=== PATIENT | female | born 1965 | race Hispanic/Latino ===

== ENCOUNTER → 2018-03-30 | Outpatient (CLI) | payer SELFPAY ==
[2018-03-30 16:54] LABS: EOSINOPHILS % (AUTO) 3.3 % (0.0-8.0); HEMATOCRIT 38.8 % (36-48); LYMPHOCYTES % (AUTO) 26.2 % (21.0-51.0); MEAN CORPUSCULAR HEMOGLOBIN 28.8 pg (27.0-33.0); MEAN CORPUSCULAR HGB CONC 33.5 g/dL (32.0-36.0); NEUTROPHILS % (AUTO) 60.5 % (40.0-77.0); PLATELET COUNT (AUTO) 347 K/uL (130-400); RED BLOOD CELL COUNT(AUTO) 4.51 MIL/uL (4.00-5.50); RED CELL DISTRIBUTION WIDTH 13.3 % (11.0-15.5); WHITE BLOOD COUNT (AUTO) 13.4 K/uL (4.8-10.8)
== END | disposition home or self-care (01) ==
LOC: LAB 15:50
PROVIDERS: ATTEND Specialist
DX: Z01.812 Encounter for preprocedural laboratory examination (principal); E11.36 Type 2 diabetes mellitus with diabetic cataract; R79.89 Other specified abnormal findings of blood chemistry
CPT/HCPCS: 36415; 85025

== ENCOUNTER 2018-08-24 19:00 | Emergency (ER) | payer OTHER, SELFPAY ==
[2018-08-24] MEDS ORDERED: NITROGLYCERIN 1GM/1 INCH PACKET TD ONE (19:35)
[2018-08-24 19:41] LABS: BASOPHILS % (AUTO) 1.5 % (0.0-5.0); EOSINOPHILS % (AUTO) 3.2 % (0.0-8.0); HEMATOCRIT 36.4 % (36-48); LYMPHOCYTES % (AUTO) 24.5 % (21.0-51.0); MEAN CORPUSCULAR HEMOGLOBIN 27.2 pg (27.0-33.0); MEAN CORPUSCULAR HGB CONC 33.1 g/dL (32.0-36.0); MEAN CORPUSCULAR VOLUME 82.3 fL (79-99); NEUTROPHILS % (AUTO) 62.8 % (40.0-77.0); NUCLEATED RED BLOOD CELLS 0.1 % (0.0-0.19); PLATELET COUNT (AUTO) 244 K/uL (130-400); RED BLOOD CELL COUNT(AUTO) 4.42 MIL/uL (4.00-5.50); RED CELL DISTRIBUTION WIDTH 13.9 % (11.0-15.5); WHITE BLOOD COUNT (AUTO) 13.7 K/uL (4.8-10.8)
[2018-08-24 19:47] LABS: POTASSIUM 5.2 mmol/L (3.5-5.1)
[2018-08-24 19:52] LABS: ALBUMIN 2.2 g/dL (3.5-5.0); BILIRUBIN,TOTAL 0.1 mg/dL (0.2-1.0); TOTAL PROTEIN, SERUM 6.4 g/dL (6.0-8.3)
[2018-08-24 20:08] LABS: B-TYPE NATRIURETIC PEPTIDE 1840 pg/mL (0-100)
[2018-08-24] MEDS ORDERED: FUROSEMIDE 10 MG/ML 4ML VIAL ONE (20:13)
[2018-08-24 21:02] LABS: APPEARANCE,URINE Clear (CLEAR); BILIRUBIN,URINE Negative (NEGATIVE); COLOR,URINE Yellow (YELLOW); GLUCOSE, URINE (UA) 500 mg/dL (NEGATIVE); KETONES,URINE Negative (NEGATIVE); LEUKOCYTE ESTERASE ,URINE Small (NEGATIVE); NITRATE,URINE Positive (NEGATIVE); OCCULT BLOOD,URINE Small (NEGATIVE); PROTEIN,URINE >=1000 (NEGATIVE); UROBILINOGEN,URINE 0.2 mg/dL (0.2-1.0)
[2018-08-24 21:16] LABS: WBC,URINE 26-50 /HPF (0-1)
[2018-08-24 21:17] LABS: BACTERIA,URINE Moderate /HPF (None Seen)
[2018-08-24 21:18] LABS: SQUAMOUS EPITHELIAL CELL,UR Rare /HPF (0-2); TRANSITIONAL EPI CELLS,URINE Few /HPF (None Seen)
== END 2018-08-24 22:35 | disposition home or self-care (01) ==
LOC: EDH 19:00
DX: N28.9 Disorder of kidney and ureter, unspecified (principal); E11.9 Type 2 diabetes mellitus without complications; I10 Essential (primary) hypertension; Z91.14 Patient's other noncompliance with medication regimen
CPT/HCPCS: 36415; 71045; 80053; 81001; 82550; 83880; 84132; 84484 ×2; 85025; 93005 ×2; 96374; 99285; J1940

== ENCOUNTER 2019-10-29 05:57 | Day surgery (SDC) | payer BC, MEDICARE ==
[~2019-10-29] VITALS: Ht 152.4 cm; Wt 62.7 kg
[~2019-10-29 05:57] MED LIST: Isosorbide Mono 30MG Tab Sr PO; LABE300T2 PO; Nitroglycerin 0.4MG Sl Tab SL
[2019-10-29] MEDS ORDERED: SODIUM CHLORIDE 0.9% 1000ML 1,000 ML IV ONE (06:19)
[2019-10-29 07:44] VITALS: BP 164/64
[2019-10-29] MEDS ORDERED: GABA-529 PO (08:15)
[2019-10-29] MEDS ORDERED: BISA-72 PO (08:15)
[2019-10-29] MEDS ORDERED: SUCR500T PO (08:15)
[2019-10-29] MEDS ORDERED: calcium (08:15)
[2019-10-29] MEDS ORDERED: ASPI-1012 PO (08:15)
[2019-10-29] MEDS ORDERED: PROPOFOL 10 MG/ML 20ML VIAL IV ONE (08:24)
[2019-10-29] MEDS ORDERED: SIMETHICONE 40 MG/0.6 ML ML ONE (08:28)
[2019-10-29 08:35] VITALS: BP 103/46
[2019-10-29 08:40] VITALS: BP 110/49
[2019-10-29 08:45] VITALS: BP 103/69
[2019-10-29 08:50] VITALS: BP 114/62
[2019-10-29 08:55] VITALS: BP 118/60
== END 2019-10-29 09:05 | disposition home or self-care (01) ==
LOC: DAH 05:57
PROVIDERS: ATTEND Internal Medicine Gastroenterology
DX: K59.04 Chronic idiopathic constipation (principal); K57.30 Diverticulosis of large intestine without perforation or abscess without bleeding; K64.0 First degree hemorrhoids; I12.0 Hypertensive chronic kidney disease with stage 5 chronic kidney disease or end stage renal disease; E11.22 Type 2 diabetes mellitus with diabetic chronic kidney disease; N18.6 End stage renal disease; E78.00 Pure hypercholesterolemia, unspecified; Z79.899 Other long term (current) drug therapy; Z79.84 Long term (current) use of oral hypoglycemic drugs; Z90.710 Acquired absence of both cervix and uterus; Z98.890 Other specified postprocedural states; Z80.0 Family history of malignant neoplasm of digestive organs
CPT/HCPCS: 36415; 45378; 82948 ×2; 84132; A4215; A4221; A4222; A4223; A4606; A4620; A4663; J2704; J7030

== ENCOUNTER 2022-07-01 07:12 | Day surgery (SDC) | payer BC, OTHER ==
[2022-06-28 13:33] LABS: BASOPHILS % (AUTO) 0.7 % (0.0-5.0); EOSINOPHILS % (AUTO) 2.9 % (0.0-8.0); HEMATOCRIT 32.5 % (36-48); LYMPHOCYTES % (AUTO) 24.1 % (21.0-51.0); MEAN CORPUSCULAR HEMOGLOBIN 31.6 pg (27.0-33.0); MEAN CORPUSCULAR HGB CONC 32.6 g/dL (32.0-36.0); MONOCYTES % (AUTO) 10.1 % (3.0-13.0); NEUTROPHILS % (AUTO) 61.9 % (40.0-77.0); PLATELET COUNT (AUTO) 180 K/uL (130-400); RED BLOOD CELL COUNT(AUTO) 3.35 MIL/uL (4.00-5.50); RED CELL DISTRIBUTION WIDTH 13.7 % (11.0-15.5); WHITE BLOOD COUNT (AUTO) 7.5 K/uL (4.8-10.8)
[2022-06-28 13:46] LABS: INR 0.97 (0.85-1.15); PROTHROMBIN TIME 10.6 SEC (9.6-11.6)
[2022-06-28 13:47] LABS: PARTIAL THROMBOPLASTIN TIME 23.8 SEC (26.3-35.5)
[2022-06-28 13:52] LABS: ALBUMIN 3.4 g/dL (3.5-5.0); POTASSIUM 4.4 mmol/L (3.5-5.1); TOTAL PROTEIN, SERUM 6.3 g/dL (6.0-8.3)
[2022-06-30 09:24] VITALS: BP 122/53
[~2022-07-01] VITALS: Ht 152.4 cm; Wt 64.8 kg
[2022-07-01] VITALS (16 sets, daily range): BP systolic 110–172; BP diastolic 57–74
[~2022-07-01 07:12] MED LIST changes: +BISA-72 PO; +CEFAZOLIN SODIUM 1 GM VIAL IVP SCH; +GABA-529 PO; -LABE300T2 PO; +LABE300T4 PO; +LACTATED RINGERS 1000ML 1,000 ML IV SCH; -Nitroglycerin 0.4MG Sl Tab SL; +SUCR500T PO; +calcium
[2022-07-01] MEDS ORDERED: 0.9% NACL 500ML IV.SOLN 500 ML IV ONE (07:37)
[2022-07-01] MEDS ORDERED: BUPIVACAINE/PF 0.5% 10ML VIAL ONE (09:32)
[2022-07-01] MEDS ORDERED: ISOS30TA92 PO (09:35)
[2022-07-01] MEDS ORDERED: GABA-529 PO (09:35)
[2022-07-01] MEDS ORDERED: ATOR40TA71 PO (09:35)
[2022-07-01] MEDS ORDERED: ASPI-1005 PO (09:46)
[2022-07-01] MEDS ORDERED: FOLI1TAB85 PO (09:46)
[2022-07-01] MEDS ORDERED: OMEP20CA12 PO (09:46)
[2022-07-01] MEDS ORDERED: BISA-72 PO (09:46)
[2022-07-01] MEDS ORDERED: LABE300T4 PO (09:46)
[2022-07-01] MEDS ORDERED: SUCR500T PO (09:46)
[2022-07-01] MEDS ORDERED: PROPOFOL 10 MG/ML 20ML VIAL IV ONE (09:53)
[2022-07-01] MEDS ORDERED: FENTANYL CITRATE PF 50 MCG/1 ML 2ML VIAL ONE ×3 (09:53→12:06)
[2022-07-01] MEDS ORDERED: MIDAZOLAM HCL 1 MG/ML 2ML VIAL ONE (09:53)
[2022-07-01] MEDS ORDERED: ROCURONIUM 10MG/1ML SYR 10 MG/ML ML ONE (09:53)
[2022-07-01] MEDS ORDERED: PHENYLEPHRINE HCL 10 MG/ML 1ML VIAL IV ONE (10:15)
[2022-07-01] MEDS ORDERED: CEFAZOLIN SODIUM 2 GM VIAL IV ONE (10:15)
[2022-07-01] MEDS ORDERED: EPHEDRINE SULFATE 50 MG/ML AMPULE ONE (10:16)
[2022-07-01] MEDS ORDERED: NEOSTIGMINE 5MG/5ML SYR IV ONE (11:04)
[2022-07-01] MEDS ORDERED: GLYCOPYRROLATE 1 MG/5 ML SYRINGE ONE (11:04)
[2022-07-01] MEDS ORDERED: ONDANSETRON 4MG INJ ONE ×2 (11:39→12:06)
== END 2022-07-01 13:45 | disposition home or self-care (01) ==
LOC: DAH 07:12
PROVIDERS: ATTEND Student in an Organized Health Care Education/Training Program
DX: I13.2 Hypertensive heart and chronic kidney disease with heart failure and with stage 5 chronic kidney disease, or end stage renal disease (principal); E11.22 Type 2 diabetes mellitus with diabetic chronic kidney disease; I50.9 Heart failure, unspecified; N18.6 End stage renal disease; Z99.2 Dependence on renal dialysis; Z79.82 Long term (current) use of aspirin; Z79.899 Other long term (current) drug therapy; Z90.710 Acquired absence of both cervix and uterus; Z90.89 Acquired absence of other organs
CPT/HCPCS: 80053; 85025; 85610; 85730; 87426; 36415 ×2; 49324; 84132; 82948 ×2; A6260; A4663; J0690 ×2; J7040; J3010 ×3; J3490 ×3; J2710; J2250; J2704; J2405 ×2; C1769 ×3; A4930; C1752; A4215; A4223; A4222; A4221; A4600; J2370

== ENCOUNTER 2022-08-26 06:48 | Day surgery (SDC) | payer OTHER, BC ==
[2022-08-19 16:14] VITALS: BP 134/67
[2022-08-19 16:44] LABS: BASOPHILS % (AUTO) 0.7 % (0.0-5.0); HEMATOCRIT 32.7 % (36-48); LYMPHOCYTES % (AUTO) 24.3 % (21.0-51.0); MEAN CORPUSCULAR HGB CONC 32.7 g/dL (32.0-36.0); MEAN CORPUSCULAR VOLUME 97.9 fL (79-99); MONOCYTES % (AUTO) 10.8 % (3.0-13.0); NEUTROPHILS % (AUTO) 59.8 % (40.0-77.0); PLATELET COUNT (AUTO) 192 K/uL (130-400); RED BLOOD CELL COUNT(AUTO) 3.34 MIL/uL (4.00-5.50); RED CELL DISTRIBUTION WIDTH 12.7 % (11.0-15.5); WHITE BLOOD COUNT (AUTO) 10.1 K/uL (4.8-10.8)
[2022-08-19 16:58] LABS: ALBUMIN 3.5 g/dL (3.5-5.0); CREATININE 4.6 mg/dL (0.5-1.5); POTASSIUM 3.6 mmol/L (3.5-5.1); TOTAL PROTEIN, SERUM 6.8 g/dL (6.0-8.3)
[~2022-08-26] VITALS: Ht 152.4 cm; Wt 64.4 kg
[2022-08-26] VITALS (19 sets, daily range): BP systolic 110–158; BP diastolic 56–80
[~2022-08-26 06:48] MED LIST changes: +ATOR40TA71 PO; -BISA-72 PO; +BUPIVACAINE/PF 0.25% 30ML VIAL IJ ONE; +FOLI1TAB85 PO; +ISOS30TA92 PO; -Isosorbide Mono 30MG Tab Sr PO; -LACTATED RINGERS 1000ML 1,000 ML IV SCH; +OMEP20CA12 PO; -SUCR500T PO; -calcium; +vitamin e PO
[2022-08-26] MEDS ORDERED: CEFAZOLIN SODIUM 1 GM VIAL ONE (07:27)
[2022-08-26] MEDS ORDERED: 0.9% NACL 500ML IV.SOLN 500 ML IV ONE (07:27)
[2022-08-26 08:23] LABS: CREATININE 5.5 mg/dL (0.5-1.5); POTASSIUM 4.1 mmol/L (3.5-5.1)
[2022-08-26] MEDS ORDERED: PROPOFOL 10 MG/ML 20ML VIAL IV ONE (08:46)
[2022-08-26] MEDS ORDERED: ONDANSETRON 4MG INJ ONE (08:46)
[2022-08-26] MEDS ORDERED: ROCURONIUM 10MG/1ML SYR 10 MG/ML ML ONE (08:46)
[2022-08-26] MEDS ORDERED: MIDAZOLAM HCL 1 MG/ML 2ML VIAL ONE (08:46)
[2022-08-26] MEDS ORDERED: FENTANYL CITRATE PF 50 MCG/1 ML 2ML VIAL ONE (08:47)
[2022-08-26] MEDS ORDERED: CEFAZOLIN SODIUM 2 GM VIAL IVPB ONE (08:57)
[2022-08-26] MEDS ORDERED: PHENYLEPHRINE HCL 10 MG/ML 1ML VIAL IV ONE (09:15)
[2022-08-26] MEDS ORDERED: MEPERIDINE-PF 25 MG/ML SYG ONE (10:07)
[2022-08-26] MEDS ORDERED: NEOSTIGMINE 5MG/5ML SYR IV ONE (10:08)
[2022-08-26] MEDS ORDERED: GLYCOPYRROLATE 1 MG/5 ML SYRINGE ONE (10:08)
== END 2022-08-26 12:40 | disposition home or self-care (01) ==
LOC: DAH 06:48
PROVIDERS: ATTEND Student in an Organized Health Care Education/Training Program
DX: T82.49XA Other complication of vascular dialysis catheter, initial encounter (principal); Z20.822 Contact with and (suspected) exposure to COVID-19; K66.0 Peritoneal adhesions (postprocedural) (postinfection); E11.22 Type 2 diabetes mellitus with diabetic chronic kidney disease; I13.2 Hypertensive heart and chronic kidney disease with heart failure and with stage 5 chronic kidney disease, or end stage renal disease; I50.9 Heart failure, unspecified; N18.6 End stage renal disease; Z79.01 Long term (current) use of anticoagulants; D64.9 Anemia, unspecified; G47.30 Sleep apnea, unspecified; Z98.890 Other specified postprocedural states; Z79.899 Other long term (current) drug therapy; Z79.82 Long term (current) use of aspirin; Z90.49 Acquired absence of other specified parts of digestive tract; Z98.891 History of uterine scar from previous surgery; Z90.710 Acquired absence of both cervix and uterus; Z90.89 Acquired absence of other organs; Z82.49 Family history of ischemic heart disease and other diseases of the circulatory system; Z99.2 Dependence on renal dialysis; Z83.3 Family history of diabetes mellitus; Y83.8 Other surgical procedures as the cause of abnormal reaction of the patient, or of later complication, without mention of misadventure at the time of the procedure
CPT/HCPCS: 87426; 80053; 85025; 36415 ×2; 49324; 80048; 82948 ×2; A6260; J7040; J3010; J0690 ×2; J3490 ×2; J2710; J2250; J2704; J2405; J2175; J1644; J2370; C1769 ×3; A4930 ×2; C1752; A4215; A4223; A4222; A4221; A4663; A4600

== ENCOUNTER 2024-06-25 07:04 | Day surgery (SDC) | payer OTHER, BC ==
[2024-06-25] VITALS (10 sets, daily range): BP systolic 92–138; BP diastolic 46–75; PULSE 80–94; RESP 16–18; TEMP 96.6–98
[~2024-06-25] VITALS: Ht 152.4 cm; Wt 54.4 kg
[~2024-06-25 07:04] MED LIST changes: +0.9%NACL 1000ML 1,000 ML IV ONE; +ASPI-1005 PO; -BUPIVACAINE/PF 0.25% 30ML VIAL IJ ONE; +CALC0.253 PO; -CEFAZOLIN SODIUM 1 GM VIAL IVP SCH; +CLOP-31 PO; +FAMO20TA8 PO; -ISOS30TA92 PO; -LABE300T4 PO; +MIDO10TA PO; -OMEP20CA12 PO; +PANT40TA54 PO; +SEVE800T27 PO; -vitamin e PO
[2024-06-25] MEDS ORDERED: proPOFol 10 MG/ML 20ML VIAL IV ONE (09:36)
== END 2024-06-25 11:10 | disposition home or self-care (01) ==
LOC: ENDO 07:04 → DAH 07:04 → ENDO 11:10
PROVIDERS: ATTEND Internal Medicine Gastroenterology
DX: R19.4 Change in bowel habit (principal); K29.50 Unspecified chronic gastritis without bleeding; K31.89 Other diseases of stomach and duodenum; K64.9 Unspecified hemorrhoids; K57.30 Diverticulosis of large intestine without perforation or abscess without bleeding; K22.10 Ulcer of esophagus without bleeding; R13.10 Dysphagia, unspecified; I12.0 Hypertensive chronic kidney disease with stage 5 chronic kidney disease or end stage renal disease; E11.22 Type 2 diabetes mellitus with diabetic chronic kidney disease; N18.6 End stage renal disease; E78.00 Pure hypercholesterolemia, unspecified; Z90.710 Acquired absence of both cervix and uterus; Z80.0 Family history of malignant neoplasm of digestive organs; Z95.5 Presence of coronary angioplasty implant and graft; Z79.899 Other long term (current) drug therapy; Z98.890 Other specified postprocedural states
CPT/HCPCS: 43239; 45378; 82948; J2704; J7030; A4620; A7002; J3490